=== PATIENT | female | born 1975 | race Two or more races ===

== ENCOUNTER 2018-05-20 22:10 | Emergency (ER) | payer OTHER ==
[~2018-05-20] VITALS: Ht 160 cm; Wt 61.2 kg
[2018-05-20] MEDS ORDERED: ZOFRAN ODT8 MG ORAL (22:24)
[2018-05-20] MEDS ORDERED: ACETAMINOPHEN325 M1 ORAL (22:24)
--- NOTE | 2018-05-20 22:30 | NUR ---
ED Nurse Note: pt came to ED c/o right abd pain x1 day. per pt son she has been experiencing nausea, and vomitnig, pt is yoruba speaking only, pt is aox4, per son pt has been experiencing, dizziness, shaking
[2018-05-20 22:35] VITALS: BP 114/61
[2018-05-20] MEDS ORDERED: Ketorolac 30mg Inj IV ONE (22:45)
--- NOTE | 2018-05-20 22:45 | Emergency Room Report ---
History of Present Illness General Chief Complaint: Abdominal Pain Source: Patient Present Illness HPI This is a 43-year-old female with no significant past medical history. She presents with chief complaint of right lower quadrant pain. Onset of pain started today. She had subjective fever, chills and sweating started yesterday. That continue. Decreased appetite. Only had soup today. Has nausea and vomiting but no diarrhea. Went to urgent care and received Tylenol and Zofran. Not getting better. Pain is 8 out of 10. No radiation. Localized to the right lower quadrant. Allergies: Coded Allergies: No Known Allergies (Unverified , 05/20/18) Patient History Past Medical History: see triage record, old chart reviewed Past Surgical History: Pertinent Family History: none Social History: Denies: smoking Last Menstrual Period: still on Now: No Immunizations: other Reviewed Nursing Documentation: PMH: Agreed; PSxH: Agreed Nursing Documentation-PMH Past Medical History: No Stated History Review of Systems Eye: Denies: eye pain, blurred vision ENT: Denies: ear pain, nose congestion, throat swelling Respiratory: Denies: cough, shortness of breath Cardiovascular: Denies: chest pain, palpitations Gastrointestinal: Reports: abdominal pain, nausea, vomiting; Denies: diarrhea Musculoskeletal: Denies: back pain, joint pain Skin: Denies: rash Neurological: Denies: headache, numbness Endocrine: Denies: increased thirst, increased urine Hematologic/Lymphatic: Denies: easy bruising All Other Systems: negative except mentioned in HPI Physical Exam Vital Signs Date Time Temp Pulse Resp B/P (MAP) Pulse Ox O2 Delivery O2 Flow Rate FiO2 05/20/18 22:18 98.8 86 16 114/67 96 Room Air vitals normal Sp02 EP Interpretation: reviewed, normal General Appearance: well appearing, no apparent distress, alert Head: normocephalic, atraumatic Eyes: bilateral eye PERRL, bilateral eye EOMI ENT: hearing grossly normal, normal pharynx Neck: full range of motion, supple, no meningismus Respiratory: chest non-tender, lungs clear, normal breath sounds Cardiovascular #1: regular rate, rhythm, no murmur Gastrointestinal: normal bowel sounds, no mass, no organomegaly, no bruit, non- distended, tenderness - Right lower quadrant Musculoskeletal: back normal, gait/station normal, normal range of motion Psychiatric: mood/affect normal Skin: warm/dry Medical Decision Making Diagnostic Impression: Primary Impression: Hepatitis Additional Impression: Hyperglycemia due to type 2 diabetes mellitus Qualified Codes: E11.65 - Type 2 diabetes mellitus with hyperglycemia ER Course Patient with right flank/upper quadrant pain. Labs showed a hepatitis. This most likely viral in nature since symptoms just started yesterday. No evidence of any acute appendicitis. No obstruction. Patient felt better. Patient does have a history of diabetes and was on metformin. Since she didn't have any doctor she's been out of her medication for a while. Said that her blood sugar normally runs around 200 until today. No evidence of DKA. We'll discharge home with metformin. CT/MRI/US Diagnostic Results CT/MRI/US Diagnostic Results : Imaging Test Ordered: CT abdomen and pelvis Impression read by radiologist Diagnostic sensitivity is limited by the absence of IV contrast utilization. Hepatosplenomegaly and diffuse hepatic steatosis. Both kidneys demonstrate at least mild enlargement with mild increase attenuation of the medullary portions and poor corticomedullary differentiation. Nonspecific finding that can be seen with nephrotic syndrome, renal glomerular disease and HIV nephropathy. Negative for obstructive uropathy. Lower GI tract demonstrates no obstruction, pneumatosis or perforation. Small appendicolith but no appendiceal enlargement or adjacent inflammatory changes. Mild bladder wall thickening with reticulation is nonspecific and can be seen with chronic outlet obstruction and cystitis. No abdominal/pelvic fluid collections. Radiologist: Christopher Goldstein MD Last Vital Signs Date Time Temp Pulse Resp B/P (MAP) Pulse Ox O2 Delivery O2 Flow Rate FiO2 05/20/18 22:18 98.8 86 16 114/67 96 Room Air Status: improved Disposition: HOME, SELF-CARE Condition: Stable Scripts Metformin Hcl* (METFORMIN HCL*) 500 Mg Tablet 500 MG ORAL TWICE A DAY, #60 TAB Prov: Darnell Tapia MD 05/21/18 Additional Instructions: Follow-up with your doctor in a week for recheck. Return if symptom worsen. Darnell Tapia MD May 20, 2018 22:45
[2018-05-20 22:55] LABS: APPEARANCE,URINE SLIGHTLY CLOUDY; BILIRUBIN, URINE NEGATIVE (NEGATIVE); GLUCOSE, URINE (UA) 4+ (NEGATIVE); KETONES,URINE NEGATIVE (NEGATIVE); LEUKOCYTE ESTERASE ,URINE 1+ (NEGATIVE); NITRITE,URINE NEGATIVE (NEGATIVE); PH,URINE 8 (4.5-8.0); PROTEIN,URINE 2+ (NEGATIVE); UROBILINOGEN,URINE NORMAL MG/DL (0.0-1.0)
[2018-05-20 22:56] LABS: COLOR,URINE RED
[2018-05-20 22:58] LABS: BASOPHILS % (AUTO) 0.7 % (0.0-2.0); EOSINOPHILS % (AUTO) 1.5 % (0.0-3.0); HEMATOCRIT 38.7 % (37.0-47.0); HEMOGLOBIN 12.8 G/DL (12.0-16.0); LYMPHOCYTES % (AUTO) 14.1 % (20.0-45.0); MEAN CORPUSCULAR VOLUME 89 FL (80-99); MONOCYTES % (AUTO) 5.4 % (1.0-10.0); NEUTROPHILS % (AUTO) 78.3 % (45.0-75.0); PLATELET COUNT 289 K/UL (150-450); RED BLOOD COUNT 4.36 M/UL (4.20-5.40); RED CELL DISTRIBUTION WIDTH 11.9 % (11.6-14.8); WHITE BLOOD COUNT 7.9 K/UL (4.8-10.8)
--- NOTE | 2018-05-20 23:06 | NUR ---
ED Nurse Note: Pt went to CT
[2018-05-20 23:09] LABS: ANION GAP 10 mmol/L (5-15); BLOOD UREA NITROGEN 11 mg/dL (7-18); CALCIUM 8.6 MG/DL (8.5-10.1); CARBON DIOXIDE 23 MMOL/L (21-32); CHLORIDE 98 MMOL/L (98-107); POTASSIUM 4.3 MMOL/L (3.5-5.1); SODIUM 131 MMOL/L (136-145)
[2018-05-20 23:13] LABS: ALANINE AMINOTRANSFERASE 100 U/L (12-78); ALBUMIN 2.9 G/DL (3.4-5.0); ALBUMIN/GLOBULIN RATIO 0.6 (1.0-2.7); ALKALINE PHOSPHATASE 204 U/L (46-116); ASPARTATE AMINO TRANSFERASE 76 U/L (15-37); BILIRUBIN,TOTAL 0.4 MG/DL (0.2-1.0)
--- NOTE | 2018-05-20 23:20 | NUR ---
ED Nurse Note: notified ermd of pt high liver enzyme labs and low albumin, pt still at CT, awaiting further orders from ermd.
--- NOTE | 2018-05-20 23:25 | NUR ---
ED Nurse Note: pt returned from CT
[2018-05-21] MEDS ORDERED: METFORMIN HCL500 M1 ORAL (00:12)
[2018-05-21] MEDS ORDERED: Insulin Human Regular 100units/ml 3ml IV ONE (00:15)
[2018-05-21 00:39] VITALS: BP 102/63
--- NOTE | 2018-05-21 00:40 | NUR ---
ED Nurse Note: PT HAS BEEN D/C PER ERMD ORDER. PT IS AOX 4, DC AND PRESCRIPTION INCSTRUCTIONS GIVEM PT WAS ABLE TO VERBALIZE UNDERSTANDING. PT ID BAND AND IV SITE DISCONTINUED WITHOUT COMPLICATIONS. PT HAS STEADY GAIT, PT TOOK ALL BELONGINGS.
--- NOTE | 2018-05-21 09:45 | Diagnostic Imaging Report ---
Indication: Abdominal pain Technique: Continuous helical transaxial imaging of the abdomen and pelvis was obtained from the lung bases to the pubic symphysis. No intravenous contrast was administered. Coronal 2-D reformats were also obtained. Automatic Exposure Control was utilized. Total Dose length Product (DLP): 835.[address] Dose Index Volume (CTDIvol): 16.14 mGy Comparison: none Findings: There is a small hiatal hernia present. Gallbladder is contracted. The right kidney demonstrates a focal fullness with suggestion of a slightly ill-defined low-attenuation focus measuring about 2.5 cm in the anterior lower part of the right kidney. There is perinephric stranding surrounding both kidneys but the degree of stranding is slightly worse in the anterior part of the right kidney. Focal bacterial nephritis and pyelonephritis is the concern. Please correlate clinically. The examination is limited by the nonadministration of intravenous contrast which is helpful and setting of renal infection. There is no hydronephrosis. The urinary bladder is unremarkable. Uterus is noted. The appendix is seen and normal. There is no free fluid or free air. No evidence of bowel obstruction. Evaluation of solid organs limited on this examination. The liver is enlarged measuring 19 cm. Trace calcification of aorta noted. Slight nodularity along the left adnexal region may be part of the ovary or unopacified small bowel. IMPRESSION: Pyelonephritis/focal bacterial nephritis suspected within the right kidney. Correlate clinically. Limited evaluation due to the nonadministration of intravenous contrast material. Normal appendix Hepatomegaly The CT scanner at [facility] is accredited by the [employer] and the scans are performed using dose optimization techniques as appropriate to a performed exam including Automatic Exposure control.
== END 2018-05-21 00:40 | disposition home or self-care (01) ==
LOC: EMR 22:37
DX: K75.9 Inflammatory liver disease, unspecified (principal); E11.65 Type 2 diabetes mellitus with hyperglycemia; R16.0 Hepatomegaly, not elsewhere classified
CPT/HCPCS: 36415; 74176; 80053; 81003; 81025; 82962; 83690; 85025; 96361; 96374; 96375; 99284; J1815; J1885; J2405

== ENCOUNTER 2019-02-17 17:12 | Emergency (ER) | payer OTHER ==
[~2019-02-17] VITALS: Ht 162.6 cm; Wt 62.1 kg
[~2019-02-17 17:12] MED LIST: ACETAMINOPHEN325 M1 ORAL; METFORMIN HCL500 M1 ORAL; ZOFRAN ODT8 MG ORAL
--- NOTE | 2019-02-17 17:39 | Emergency Room Report ---
History of Present Illness General Chief Complaint: General Complaint Source: Patient Present Illness HPI 43-year-old female with history of diabetes controlled with formation here complaining of 1 day of right-sided facial drooping and numbness. Patient denies any headache, dizziness, history of hypertension, recent URI symptoms. Denies any fever and chills, chest pain, shortness of breath, palpitation, abdominal pain nausea vomiting. 2 2-year-old female patient is unable to close his right eye. He denies any blurry vision or photophobia. Drooping is noted on the right side. No generalized or unilateral weakness noted. Has not taken medication for symptom relief. Denies history of tobacco smoke, drug use, alcohol intake. Allergies: Coded Allergies: No Known Allergies (Unverified , 05/20/18) Patient History Past Medical History: see triage record Past Surgical History: unable to obtain Pertinent Family History: none Last Menstrual Period: Now: No : 2 Para: 2 Immunizations: UTD Reviewed Nursing Documentation: PMH: Agreed; PSxH: Agreed Nursing Documentation-PMH Hx Hypertension: Yes - high cholesterol Hx Diabetes: Yes Review of Systems All Other Systems: negative except mentioned in HPI Physical Exam Vital Signs Date Time Temp Pulse Resp B/P (MAP) Pulse Ox O2 Delivery O2 Flow Rate FiO2 02/17/19 17:19 98.1 81 18 115/82 (93) 96 Room Air Sp02 EP Interpretation: reviewed, normal General Appearance: no apparent distress, alert, GCS 15, non-toxic Head: normocephalic, atraumatic Eyes: bilateral eye normal inspection, bilateral eye PERRL ENT: hearing grossly normal, normal pharynx, no angioedema, normal voice Neck: full range of motion, supple, thyroid normal, no meningismus, no bony tend, no carotid bruits, supple/symm/no masses Respiratory: chest non-tender, lungs clear, normal breath sounds, no rhonchi, no respiratory distress, no retraction, no accessory muscle use, no wheezing, speaking full sentences Cardiovascular #1: regular rate, rhythm, no edema, no gallop, no murmur, normal capillary refill Cardiovascular #2: 2+ carotid (R), 2+ carotid (L) Gastrointestinal: non tender, soft, no mass Genitourinary: no CVA tenderness Musculoskeletal: back normal, digits/nails normal, gait/station normal, non- tender, other - Facial drooping right-sided Neurologic: alert, oriented x3, responsive, motor strength/tone normal, sensory intact, speech normal Psychiatric: judgement/insight normal, memory normal, mood/affect normal, no suicidal/homicidal ideation Skin: no rash Lymphatic: no adenopathy Medical Decision Making PA Attestation All my diagnosis and treatment plans were reviewed ad discussed with my supervising physician Dr. Martinez Diagnostic Impression: Primary Impression: Ryan palsy ER Course 43-year-old female with history of diabetes controlled with formation here complaining of 1 day of right-sided facial drooping and numbness. Patient denies any headache, dizziness, history of hypertension, recent URI symptoms. Denies any fever and chills, chest pain, shortness of breath, palpitation, abdominal pain nausea vomiting. 2 2-year-old female patient is unable to close his right eye. He denies any blurry vision or photophobia. Drooping is noted on the right side. No generalized or unilateral weakness noted. Has not taken medication for symptom relief. Denies history of tobacco smoke, drug use, alcohol intake. Ddx considered but are not limited to: CVA, TIA, Ryan's palsy, trigeminal neuralgia, anxiety Vital signs: are WNL, pt. is afebrile H&PE are most consistent with: Ryan's palsy ORDERS: Acyclovir, prednisone, Zaditor eyedrops ED INTERVENTIONS: None required at this time. DISCHARGE: At this time pt. is stable for d/c to home. Will provide printed patient care instructions, and any necessary prescriptions. Care plan and follow up instructions have been discussed with the patient prior to discharge. Patient to follow-up with primary care provider and if worsening symptoms return to emergency room. No need for head CT scan is normal limits. Patient does not have confusion, generalized weakness. Last Vital Signs Date Time Temp Pulse Resp B/P (MAP) Pulse Ox O2 Delivery O2 Flow Rate FiO2 02/17/19 17:19 98.1 81 18 115/82 (93) 96 Room Air Disposition: HOME, SELF-CARE Condition: Stable Scripts Ketotifen Fumarate (ZADITOR) 5 Ml Drops 1 DROP RIGHT EYE BID for 30 Days, #5 ML 0 Refills Prov: Nisa Huston 02/17/19 Prednisone* (PREDNISONE*) 20 Mg Tablet 40 MG ORAL DAILY for 5 Days, #10 TAB Prov: Nisa Huston 02/17/19 Acyclovir* (ACYCLOVIR*) 400 Mg Tablet 400 MG ORAL FIVE TIMES A DAY for 7 Days, #35 TAB Prov: Nisa Huston 02/17/19 Patient Instructions: Ryan Palsy Additional Instructions: Take medication as directed, follow-up with your primary care provider, if worsening symptoms return to emergency room. Nisa Huston Feb 17, 2019 17:39
[2019-02-17] MEDS ORDERED: PREDNISONE20 MG ORAL (17:42)
[2019-02-17] MEDS ORDERED: ZADITOR5 ML RIGHT EYE (17:42)
[2019-02-17] MEDS ORDERED: ACYCLOVIR400 MG ORAL (17:42)
--- NOTE | 2019-02-17 17:45 | NUR ---
ER DISCHARGE NOTE: Patient is cleared to be discharged per ERMD, pt is aox4, on room air, with stable vital signs. pt was given dc and prescription instructions, pt was able to verbalize understanding, pt is able to ambulate with steady gait. pt took all belongings.
[2019-02-17 18:24] VITALS: BP 115/82
[2019-02-17 18:26] VITALS: BP 115/82
== END 2019-02-17 18:00 | disposition home or self-care (01) ==
LOC: EMR 17:39
DX: G51.0 Bell's palsy (principal); E11.9 Type 2 diabetes mellitus without complications; I10 Essential (primary) hypertension; E78.00 Pure hypercholesterolemia, unspecified
CPT/HCPCS: 99282